=== PATIENT | female | born 1960 | race Caucasian/White ===

== ENCOUNTER 2017-06-01 23:44 | Emergency (ER) | payer OTHER ==
[~2017-06-01] VITALS: Ht 165.1 cm; Wt 105.3 kg
[2017-06-02 00:06] VITALS: O2SAT 95
[2017-06-02 00:07] VITALS: Ht 165.1 cm; Wt 105.3 kg
[2017-06-02 00:38] LABS: BASO % 0.5 %; BASO ABS # 0.03 K/uL (0-0.2); COMPLETE YES; EOS % 3.6 %; HEMATOCRIT 39.5 % (37-47); IG% 0.2 %; LYMPH % 35.7 %; LYMPH ABS # 2.16 K/uL (1.2-3.4); MEAN CELL VOLUME 89.2 fL (80-100); MEAN CORPUSCULAR HEMOGLOBIN 29.3 pg (25-34); MEAN CORPUSCULAR HGB CONC 32.9 g/dl (32-36); MEAN PLATELET VOLUME 9.4 fL (7.4-10.4); MONO % 4.3 %; NEUT % 55.7 %; PLATELET COUNT 238 K/uL (130-400); RED BLOOD COUNT 4.43 M/uL (4.2-5.4); WHITE BLOOD COUNT 6.05 K/uL (4.8-10.8)
[2017-06-02] MEDS ORDERED: ATEN50TA8 PO (00:49)
[2017-06-02] MEDS ORDERED: LANS15CA6 PO (00:50)
[2017-06-02] MEDS ORDERED: CYCL10TA6 PO (00:51)
[2017-06-02] MEDS ORDERED: ASPI325T45 PO (00:52)
[2017-06-02 01:03] LABS: AST/SGOT 21 U/L (15-37); BLOOD UREA NITROGEN 15 mg/dl (7-18); BUN/CREATININE RATIO 18.1 (10-20); CARBON DIOXIDE 24 mmol/L (21-32); CHLORIDE 107 mmol/L (98-107); CREATININE 0.81 mg/dl (0.60-1.20); GLUCOSE 156 mg/dl (70-99); POTASSIUM 3.7 mmol/L (3.5-5.1); SODIUM 140 mmol/L (136-145)
[2017-06-02 01:08] LABS: ALKALINE PHOSPHATASE 77 U/L (45-117); ALT/SGPT 35 U/L (12-78)
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
[2017-06-02] MEDS ORDERED: DIPHTHERIA/TETANUS/PERTUSSIS 0.5 ML SYR/VIAL IM. ONE ×2 (02:45)
[2017-06-02 02:57] VITALS: BP 164/94; PULSE 70; O2SAT 99
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
== END 2017-06-02 02:59 | disposition home or self-care (01) ==
LOC: EDBD 23:44 → C.EDB 23:47
DX: R55 Syncope and collapse (principal); S80.211A Abrasion, right knee, initial encounter; S80.212A Abrasion, left knee, initial encounter; V47.5XXA Car driver injured in collision with fixed or stationary object in traffic accident, initial encounter; Y92.488 Other paved roadways as the place of occurrence of the external cause; R73.9 Hyperglycemia, unspecified; I10 Essential (primary) hypertension; K21.9 Gastro-esophageal reflux disease without esophagitis; E78.5 Hyperlipidemia, unspecified; Z79.82 Long term (current) use of aspirin; Z79.899 Other long term (current) drug therapy